=== PATIENT | male | born 1940 | race Caucasian/White ===

== ENCOUNTER 2019-12-05 12:15 | Emergency (ER) | payer MEDICARE ==
[~2019-12-05] VITALS: Ht 172.7 cm; Wt 94.1 kg
[~2019-12-05 12:15] MED LIST: ASPIRIN81 MG PO; AVODART0.5 MG PO; CIPROFLOXACN500 MG PO; DILAUDID 2MG2 MG/TA1 PO; LIPITOR10 M1 PO; LISINOPRIL10 MG PO; MULTI VIT PO; SAW PALMETTO1000 MG PO
[2019-12-05 13:40] LABS: HEMATOCRIT 38.8 % (39.0-50.0); HEMOGLOBIN 12.4 g/dl (14.0-18.0); IMMATURE GRANULOCYTES 0.4 % (0.0-5.0); MEAN CELL VOLUME 91.9 fL CALC (80.0-100.0); MEAN CORPUSCULAR HGB 29.4 pG CALC (26.0-32.0); NEUT# 5.27 thou/uL (1.82-7.42); RED BLOOD COUNT 4.22 mill/uL (4.70-6.10); RED CELL DISTRI WIDTH 13.8 % (11.5-15.5)
[2019-12-05 13:59] LABS: BUN 22 mg/dL (8-23); BUN/CREATININE RATIO 26 (12-20 (CALC)); CARBON DIOXIDE 26 mmol/l (22-30); CHLORIDE 99 mmol/l (95-108); CREATININE 0.8 mg/dL (0.7-1.3); GFR > 60 ML/MIN (>=60 (CALC)); GFR FOR AFR.AMER. > 60 ML/MIN (>=60 (CALC)); POTASSIUM 4.4 mmol/l (3.5-5.1); SGOT/AST 27 u/l (19-48); TOTAL PROTEIN 6.5 g/dL (6.3-8.2)
[2019-12-05 14:00] LABS: ALKALINE PHOSPHATASE 190 u/l (38-126); ANION GAP 11 (6-22 (CALC)); BILIRUBIN, TOTAL 0.6 mg/dL (0.0-1.4); SODIUM 132 mmol/l (137-146)
[2019-12-05 14:27] VITALS: BP 188/83
== END 2019-12-05 14:18 | disposition left against medical advice (07) ==
LOC: ED 12:15 → ED-I 13:00 → ED 14:18
PROVIDERS: Family Medicine
DX: R13.10 Dysphagia, unspecified (principal); E11.9 Type 2 diabetes mellitus without complications; Z11.59 Encounter for screening for other viral diseases